=== PATIENT | female | born 1985 | race African-American/Black ===

== ENCOUNTER 2019-10-13 23:04 | Inpatient (IN) | payer MEDICAID ==
[~2019-10-13] VITALS: Ht 149.9 cm; Wt 52.2 kg
[2019-10-14] MEDS ORDERED: LIDOCAINE HCL 1% 20ML VIAL (Pyxis) INJ MC SCH (00:15)
[2019-10-14] MEDS ORDERED: NALOXONE HCL 0.4 MG/ML 1ML VIAL IM PRN (01:00)
[2019-10-14] MEDS ORDERED: BUTORPHANOL TARTRATE 2 MG/ML VIAL IM PRN (01:00)
[2019-10-14] MEDS ORDERED: PENICILLIN G POTASSIUM 5 MMU in DEXT 5% WATER 100 ML IV SCH (01:30)
[2019-10-14] MEDS ORDERED: DEXT 5%/LR + PITOCIN 20UNITS/L 1,000 ML IV SCH ×2 (01:36→01:41)
[2019-10-14] MEDS ORDERED: DEXT 5%/LR + PITOCIN 20UNITS/L 1,000 ML IV ONE (01:36)
[2019-10-14] MEDS ORDERED: HEMORRHOIDAL SUPP PR PRN (01:45)
[2019-10-14] MEDS ORDERED: LANOLIN OINT 7GM TUBE TOP PRN (01:45)
[2019-10-14] MEDS ORDERED: GLYCERIN/WITCH HAZEL LEAF MEDICATED PAD TOP PRN (01:45)
[2019-10-14] MEDS ORDERED: ACETAMINOPHEN WITH CODEINE 300/30MG TABLET PO PRN ×2 (01:45)
[2019-10-14] MEDS ORDERED: BISACODYL 10MG SUPP PR PRN (01:45)
[2019-10-14 01:47] LABS: BASOPHILS % 1.3 % (0.0-2.0); EOSINOPHILS % 0.3 % (0.0-5.0); HEMATOCRIT. 35.6 % (36.0-48.0); HEMOGLOBIN. 11.9 g/dL (12.0-16.0); LYMPHOCYTES % 35.4 % (20.0-50.0); MEAN CORPUSCULAR HEMOGLOBIN 29.3 pg (28.0-32.0); MEAN CORPUSCULAR VOLUME 88.1 fL (81.0-99.0); MEAN PLATELET VOLUME 9.1 fl (7.4-10.4); MONOCYTES % 12.4 % (2.0-8.0); NEUTROPHILS % 50.6 % (40.0-76.0); PLATELET 287 x1000/uL (130-400); RED BLOOD CELL COUNT 4.05 mill/uL (4.2-5.4); RED CELL DISTRIBUTION WIDTH 13.7 % (11.6-14.6)
[2019-10-14 02:24] LABS: *AMPHETAMINES SCREEN URINE NEGATIVE (NEGATIVE)
[2019-10-14 02:25] LABS: *BARBITURATES SCREEN URINE NEGATIVE (NEGATIVE); *BENZODIAZEPINES SCREEN URINE NEGATIVE (NEGATIVE); *COCAINE SCREEN URINE NEGATIVE (NEGATIVE); METHADONE URINE SCREEN NEGATIVE (NEGATIVE); OPIATES URINE SCREEN NEGATIVE (NEGATIVE); PHENCYCLIDINE URINE SCREEN NEGATIVE (NEGATIVE)
[2019-10-14 02:28] LABS: HEPATITIS B SURFACE ANTIGEN NEGATIVE
[2019-10-14 02:38] LABS: CANNABINOID URINE SCREEN PRESUMTIVE POSITIVE (NEGATIVE)
[2019-10-14 04:30] VITALS: BP 116/75
[2019-10-14 05:30] VITALS: BP 114/72
[2019-10-14] MEDS ORDERED: PENICILLIN G POTASSIUM 2.5 MMU in DEXTROSE 5% WATER 50 ML IV SCH (06:00)
[2019-10-14] MEDS: MAGNESIUM/ALUMINUM HYDROXIDE/SIMETHICONE 30ML UDC PO SCH ×2 (07:30→12:30)
[2019-10-14] MEDS: FERROUS SULFATE 325MG TABLET PO SCH ×2 (07:30→12:30)
[2019-10-14] MEDS: SIMETHICONE 80MG TABLET CHEW PO SCH ×3 (08:00→22:07)
[2019-10-14 09:00] VITALS: BP 123/65
[2019-10-14] MEDS: PRENATAL VIT/FE FUMARATE/FA TABLET PO SCH (09:00)
[2019-10-14] MEDS: IBUPROFEN 400MG TABLET PO PRN ×2 (11:09→20:31)
[2019-10-14 17:00] VITALS: BP 113/76
[2019-10-14 19:40] VITALS: BP 115/76
[2019-10-14] MEDS: DOCUSATE SODIUM 100MG CAPSULE PO SCH (20:31)
[2019-10-15 04:00] VITALS: BP 106/56
[2019-10-15] MEDS: IBUPROFEN 800MG TABLET PO PRN (05:57)
[2019-10-15] MEDS: MAGNESIUM/ALUMINUM HYDROXIDE/SIMETHICONE 30ML UDC PO SCH ×2 (07:30→21:43)
[2019-10-15 08:15] LABS: BASOPHILS % 0.4 % (0.0-2.0); EOSINOPHILS % 0.2 % (0.0-5.0); HEMATOCRIT. 32.5 % (36.0-48.0); HEMOGLOBIN. 10.8 g/dL (12.0-16.0); LYMPHOCYTES % 18.9 % (20.0-50.0); MEAN CORPUSCULAR HEMOGLOBIN 29.4 pg (28.0-32.0); MEAN CORPUSCULAR VOLUME 88.4 fL (81.0-99.0); MEAN PLATELET VOLUME 8.6 fl (7.4-10.4); MONOCYTES % 12.6 % (2.0-8.0); NEUTROPHILS % 67.9 % (40.0-76.0); PLATELET 251 x1000/uL (130-400); RED BLOOD CELL COUNT 3.68 mill/uL (4.2-5.4); RED CELL DISTRIBUTION WIDTH 13.6 % (11.6-14.6)
[2019-10-15 09:00] VITALS: BP 111/67
[2019-10-15] MEDS: PRENATAL VIT/FE FUMARATE/FA TABLET PO SCH (09:20)
[2019-10-15] MEDS: FERROUS SULFATE 325MG TABLET PO SCH ×3 (09:20→18:33)
[2019-10-15 17:00] VITALS: BP 105/79
[2019-10-15] MEDS: IBUPROFEN 400MG TABLET PO PRN (19:02)
[2019-10-15 19:30] VITALS: BP 124/80
[2019-10-15] MEDS: SIMETHICONE 80MG TABLET CHEW PO SCH (21:43)
[2019-10-15] MEDS: DOCUSATE SODIUM 100MG CAPSULE PO SCH (21:43)
[2019-10-16 04:00] VITALS: BP 115/70
[2019-10-16 08:00] VITALS: BP 120/83
[2019-10-16] MEDS: IBUPROFEN 800MG TABLET PO PRN (08:14)
[2019-10-16] MEDS: PRENATAL VIT/FE FUMARATE/FA TABLET PO SCH (08:14)
[2019-10-16] MEDS: FERROUS SULFATE 325MG TABLET PO SCH (08:14)
[2019-10-16] MEDS: SIMETHICONE 80MG TABLET CHEW PO SCH (08:15)
[2019-10-16] MEDS: MAGNESIUM/ALUMINUM HYDROXIDE/SIMETHICONE 30ML UDC PO SCH (08:15)
[2019-10-18 19:09] LABS: CANNABINOID CONFIRMATION URINE Positive (.)
== END 2019-10-16 11:55 | disposition home or self-care (01) | DRG 560 ==
LOC: 8 EST LDRP 23:04 → OBSVTOIN 23:04 → 8EST 10-14 03:57
PROVIDERS: ADMIT Obstetrics & Gynecology; ATTEND Obstetrics & Gynecology
PROC: 10E0XZZ Delivery of Products of Conception, External Approach (ICD-10-PCS; principal; 2019-10-14)
DX: O60.14X0 Preterm labor third trimester with preterm delivery third trimester, not applicable or unspecified (principal); D62 Acute posthemorrhagic anemia; O99.02 Anemia complicating childbirth; Z37.0 Single live birth; Z3A.36 36 weeks gestation of pregnancy
CPT/HCPCS: 36415; 76815; 80305; 80349; 86592; 86703; 86762; 86850; 86900; 87340; C1893; G0378; J0595; J2540; J2590; J7060